=== PATIENT | female | born 1970 | race Caucasian/White ===

== ENCOUNTER 2020-01-25 11:09 | Outpatient (CLI) | payer OTHER, SELFPAY ==
--- NOTE | ~2020-01-25 | MMUS_ITS ---
EXAMINATION: MM diagnostic nathan BI w uri, US breast BI complete HISTORY: Six-month follow-up TECHNIQUE: ML, MLO and cc full field and spot 3-D tomosynthesis images of both breasts were performed and synthetic 2-D images were generated. CAD analysis was submitted and interpreted. High resolution bilateral complete breast ultrasound was performed. COMPARISON: 07/07/2019 bilateral digital screening mammogram 07/24/2019 bilateral diagnostic digital mammogram and bilateral Limited breast ultrasound BREAST PARENCHYMAL COMPOSITION: The breasts are heterogeneously dense, which may obscure small masses . FINDINGS: MAMMOGRAPHIC FINDINGS: No suspicious mass or architectural distortion, malignant desiccation, skin thickening or retraction of either breast is evident. No apparent significant new or developing density is noted. Bilateral co mplete breast ultrasound examination was performed to exclude any mass obscured by the heterogeneousl y dense stroma. ULTRASOUND: There are scattered bilateral breast cysts, the largest on the right situated at 3:00 in the periareo lar area measuring up to 1.1 x 0.6 x 0.7 cm, the largest on the left situated at 2:00 3 cm from the n ipple, measuring 1.2 x 0.4 x 1.0 cm. No suspicious mass or shadowing of either breast is evident. IMPRESSION: 1. No mammographic evidence of malignancy 2. Routine mammographic screening is recommended. BI-RADS Category 2: Benign finding(s). Reviewed, dictated and finalized at location A. IMPRESSION: 1. No mammographic evidence of malignancy 2. Routine mammographic screening is recommended. BI-RADS Category 2: Benign finding(s).
== END 2020-01-25 11:10 | disposition home or self-care (01) ==
LOC: ANHIMG 11:12
PROVIDERS: PCP Family Medicine; Visit Provider Obstetrics & Gynecology
DX: R92.8 Other abnormal and inconclusive findings on diagnostic imaging of breast (principal)
CPT/HCPCS: 76641; 77062; 77066; G0279

== ENCOUNTER 2020-08-19 15:26 | Outpatient (CLI) | payer OTHER, SELFPAY ==
--- NOTE | ~2020-08-19 | MM_ITS ---
EXAMINATION: MM screening nathan BI w uri HISTORY: Screening mammogram TECHNIQUE: Craniocaudal and mediolateral oblique 3-D tomosynthesis images were obtained and synthetic 2-D images were generated. CAD analysis was submitted and interpreted. COMPARISON: 01/25/2020 bilateral diagnostic mammogram and bilateral complete breast ultrasound 07/24/2019 bilateral diagnostic digital mammogram and Limited bilateral breast ultrasound 07/07/2019, 07/15/2018, 07/01/2017 bilateral digital screening mammogram examinations BREAST PARENCHYMAL COMPOSITION: The breasts are heterogeneously dense, which may obscure small masses . FINDINGS: There is an approximately 8 mm circumscribed low-density opacity at mid depth in the lower inner right breast. Diagnostic right mammogram and right breast ultrasound examination are recommende d. Otherwise there is no evidence of suspicious mass, calcification, or architectural distortion to sugg est malignancy in either breast. There has been no suspicious interval change. IMPRESSION: 1. 8mm circumscribed mass of lower inner quadrant of right breast 2. Diagnostic right mammogram and right breast ultrasound examination are recommended. BI-RADS Category 0: Incomplete: Needs additional imaging evaluation. Reviewed, dictated and finalized at location A. ER DEVELOPMENT MANAGER IMPRESSION: 1. 8mm circumscribed mass of lower inner quadrant of right breast 2. Diagnostic right mammogram and right breast ultrasound examination are recom mended. BI-RADS Category 0: Incomplete: Needs additional imaging evaluation.
== END 2020-08-19 15:27 | disposition home or self-care (01) ==
LOC: ANHIMG 15:29
PROVIDERS: PCP Family Medicine; Visit Provider Obstetrics & Gynecology
DX: Z12.31 Encounter for screening mammogram for malignant neoplasm of breast (principal); R92.8 Other abnormal and inconclusive findings on diagnostic imaging of breast
CPT/HCPCS: 77063; 77067

== ENCOUNTER 2020-08-26 12:29 | Outpatient (CLI) | payer OTHER, SELFPAY ==
--- NOTE | ~2020-08-26 | MMUS_ITS ---
EXAMINATION: MM diagnostic mammo unilat RT, US breast RT limited HISTORY: 8 mm circumscribed mass reported in the lower inner quadrant of right breast on 08/19/2020 s creening mammogram TECHNIQUE: Additional 3-D tomosynthesis images of the right breast were performed and synthetic 2-D i mages were generated. CAD analysis was submitted and interpreted. High resolution lower inner quadran t and lower outer quadrant right breast ultrasound was performed. COMPARISON: 08/19/2020 bilateral digital screening mammogram FINDINGS: MAMMOGRAPHIC FINDINGS: Approximately 8 mm rounded circumscribed opacity is noted in the lower inner quadrant of the right br east (craniocaudal Tomosynthesis image 25/68). ULTRASOUND: 4:00: Adjacent 4 mm and 8 mm sonolucency without internal vascularity, with through transmission and posterior enhancement, compatible with cyst. IMPRESSION: 1. 4 mm at 8 mm cyst at 4:00 2. No mammographic evidence of malignancy 3. Routine annual mammographic screening follow-up is recommended. BI-RADS Category 2: Benign finding(s). Reviewed, dictated and finalized at location A. R MIXER HELPER IMPRESSION: 1. 4 mm at 8 mm cyst at 4:00 2. No mammographic evidence of malignancy 3. Routine annual mammographic screening follow-up is recommended. BI-RADS Category 2: Benign finding(s).
== END 2020-08-26 12:30 | disposition home or self-care (01) ==
LOC: ANHIMG 12:31
PROVIDERS: PCP Family Medicine; Visit Provider Obstetrics & Gynecology
DX: R92.8 Other abnormal and inconclusive findings on diagnostic imaging of breast (principal)
CPT/HCPCS: 76642; 77065

== ENCOUNTER 2021-02-13 03:16 | Emergency (ER) | payer OTHER, SELFPAY ==
--- NOTE | ~2021-02-13 | CT_ITS ---
EXAMINATION: CT abdomen pelvis wo con DATE: 02/13/2021 04:12 INDICATION: Right leg pain. TECHNIQUE: Computed tomography (CT) of the abdomen and pelvis was performed without intravenous contr ast. Automated exposure control and iterative reconstruction technique were employed. The dose-length product was 681.67 mGy-cm. COMPARISON: None. FINDINGS: The visualized portions of the lung bases demonstrate mild atelectasis. No pleural effusion . The heart size is normal. No pericardial effusion. The liver, gallbladder, spleen, pancreas, adrena l glands, and right kidney are normal. There is a 2 mm stone in left kidney. There are phleboliths in the appendix, which measures 9 mm in diameter. There are no pathologically enlarged lymph nodes. The re is no free intraperitoneal fluid. There is mild lumbar spondylosis. IMPRESSION: 1. 2 mm nonobstructing left kidney stone. 2. Appendicoliths in the appendix with appendiceal diameter of 9 mm, but no fat stranding or leukocyt osis to suggest appendicitis. Reviewed, dictated and finalized at location A. IMPRESSION: 1. 2 mm nonobstructing left kidney stone. 2. Appendicoliths in the appendix with appendiceal diameter of 9 mm, but no fat stranding or leukocytosis to suggest appendicitis.
[2021-02-13 03:21] VITALS: BP 146/81; PULSE 78; RESP 18; TEMP 36.6; O2SAT 100
--- NOTE | 2021-02-13 03:38 | ED.ABDPAIN ---
HPI - Abdominal Pain General Chief Complaint: Abdominal Pain Stated Complaint: right side pain/abd pain Time Seen by Provider: 02/13/21 03:35 Source: patient Mode of arrival: ambulatory Limitations: no limitations History of Present Illness HPI narrative: Patient is a 50-year-old female complaining of right flank pain, 8 out of 10, tightness, nonradiating started tonight. Patient denies any chest pain, shortness of breath, nausea, vomiting, diarrhea, fever, chills or urinary symptoms. Patient states that she has a history of kidney stones. Related Data Home Medications Medication Instructions Recorded Confirmed No Home Medications 07/25/20 10/25/20 Allergies Allergy/AdvReac Type Severity Reaction Status Date / Time Penicillins Allergy Unknown rash Verified 10/25/20 15:20 Sulfa (Sulfonamide Allergy Unknown hives Verified 10/25/20 15:20 Antibiotics) Review of Systems Review of Systems: All systems reviewed & are unremarkable except as noted in HPI and below Constitutional: Constitutional: Denies body ache(s), Denies chills, Denies excessive sweating, Denies fatigue, Denies fever(s), Denies headache(s), Denies lethargy, Denies malaise, Denies weakness and Denies weight loss Eyes: Eyes: Denies blurry vision, Denies change in vision and Denies loss of vision ENT: Denies dizziness, Denies ear discharge, Denies headache(s), Denies lip swelling, Denies epistaxis, Denies nasal congestion, Denies neck pain, Denies throat swelling and Denies tongue swelling Cardiovascular: Cardiovascular: Denies chest pain, Denies chest pain at rest, Denies chest pain with activity, Denies diaphoresis, Denies rapid heart rate, Denies edema, Denies irregular heart rhythm, Denies lightheadedness, Denies palpitations, Denies dyspnea and Denies dyspnea on exertion Respiratory: Respiratory: Denies chest congestion, Denies cough, Denies hemoptysis, Denies dyspnea and Denies dyspnea on exertion Gastrointestinal: Gastrointestinal: Denies melena, Denies hematochezia, Denies diarrhea, Denies nausea, Denies vomiting and Denies hematemesis Musculoskeletal: Musculoskeletal: Denies abnormal gait, Denies deformity, Denies joint swelling, Denies limited range of motion, Denies neck pain and Denies numbness Neurologic: Denies Abnormal speech present, Denies abnormal gait, Denies confusion, Denies dizziness, Denies headache(s), Denies focal weakness, Denies loss of vision, Denies numbness, Denies Other visual disturbances, Denies Sensory deficit (Neuro) and Denies weakness Psychiatric: Psychiatric: Denies confusion, Denies depression, Denies auditory hallucinations, Denies homicidal ideation and Denies suicidal ideation Endocrine: Endocrine: Denies cold intolerance, Denies excessive sweating, Denies fatigue, Denies heat intolerance and Denies palpitations Hematologic/Lymphatic: Hematologic/Lymphatic: Denies easy bleeding and Denies easy bruising Allergic/Immunologic: Allergic/Immunologic: Denies lip swelling, Denies throat swelling and Denies tongue swelling PMFSH Past Medical History Medical History (Updated 02/13/21 @ 05:21 by Milton Rojas MD) Kidney stones Leg length discrepancy Overweight (BMI 25.0-29.9) Unspecified vitamin D deficiency Vaginal delivery x4 Surgical History Surgical History H/O LEEP Family History Family History Grandparent Cerebrovascular accident Family history of malignant neoplasm of breast Social History Social History Smoking status: Never smoker Alcohol intake: current Exam Const: General: cooperative, healthy appearing, comfortable, no acute distress, well developed, alert and awake; No confusion Orientation/consciousness: oriented to person, oriented to place, oriented to time, patient oriented x3 and No confusion Limitations: no limit
[2021-02-13 03:53] LABS: Alanine Aminotransferase 26 U/L (4-35); Albumin Level 4.7 g/dL (3.5-5.1); Alkaline Phosphatase 68 U/L (38-126); Anion Gap 7 mmol/L (8-16); Aspartate Amino Transferase 34 U/L (14-36); Bilirubin,Total 0.4 mg/dL (0.2-1.3); Blood Urea Nitrogen 11 mg/dL (7-17); Calcium 10.1 mg/dL (8.4-10.2); Carbon Dioxide 28 mmol/L (22-30); Chloride 102 mmol/L (98-107); Estimated CRCL calculation 95 ml/min; Estimated Glomerular Filt Rate > 60; Glucose 112 mg/dL (65-105); Lipase 165 U/L (23-300); Potassium 3.6 mmol/L (3.4-5.0); Sodium 137 mmol/L (137-145)
[2021-02-13 03:55] LABS: Basophils Absolute Auto 0.1 K/mm3 (0.0-0.1); Basophils Percent Auto 0.8 % (0.2-1.2); Eosinophils Absolute Auto 0.2 K/mm3 (0-0.3); Hematocrit 38.9 % (37.0-47.0); Hemoglobin 12.7 g/dL (12.0-15.0); Immature Granulocyte Absolute 0.02 K/mm3 (0.00-0.031); Immature Granulocyte Percent A 0.2 % (0-0.5); Lymphocytes Absolute Auto 1.93 K/mm3 (0.9-3.2); Lymphocytes Percent Auto 21.1 % (18.3-44.2); Mean Corpuscular HGB Conc 32.6 g/dl (32-36); Mean Corpuscular Hemoglobin 26.7 pg (26-34); Mean Corpuscular Volume 81.7 fl (80-100); Mean Platelet Volume 11.1 fl (7.4-10.4); Monocytes Absolute Auto 0.6 K/mm3 (0.1-0.6); Monocytes Percent Auto 6.1 % (2.6-8.5); Neutrophils Absolute Auto 6.4 K/mm3 (1.3-6.7); Neutrophils Percent Auto 69.8 % (45.5-73.1); Platelet Count Result 241 k/mm3 (150-375); Red Blood Count 4.76 M/mm3 (4.2-5.4); Red Cell Distribution Width 14.1 % (11.5-14.5); White Blood Count 9.2 K/mm3 (4.5-10.0)
[2021-02-13] MEDS: SODIUM CHLORIDE 0.9% IV 1,000 ML 999 ML IV CONT (04:55)
[2021-02-13] MEDS: KETOROLAC 30 MG/ML VIAL (*BKC) IV PUSH (04:55)
[2021-02-13 05:07] LABS: Add Urine Microscopic? YES; Appearance Urine Clear (Clear); Bacteria Urine Trace /hpf; Bilirubin Urine Negative (Negative); Blood Urine 2+ (Negative); Color Urine Yellow (Yellow); Glucose Urine UA Negative (Negative); Ketones Urine 1+ mg/dL (Negative); Leukocyte Esterase Ur Negative LEU/UL (Negative); Mucus Urine Few /lpf; Nitrate Urine Negative (Negative); Protein Urine 1+ mg/dL (Negative); Specific Grav Ur 1.021 (1.001-1.035); Squamous Epithelial Cell Urine Few /hpf (Few); Urobilinogen Urine Negative mg/dL (<2.0); WBC Urine 0-3 /hpf
[2021-02-13 05:45] VITALS: BP 116/78; PULSE 69; RESP 16; O2SAT 98
== END 2021-02-13 05:45 | disposition home or self-care (01) ==
PROVIDERS: Emergency Provider Emergency Medicine; PCP Family Medicine
DX: R10.9 Unspecified abdominal pain (principal); R31.29 Other microscopic hematuria; Z87.442 Personal history of urinary calculi; E66.3 Overweight; Z68.28 Body mass index [BMI] 28.0-28.9, adult; E55.9 Vitamin D deficiency, unspecified
CPT/HCPCS: 36415; 74176; 80053; 81001; 81025; 83690; 85025; 96361; 96374; 99284; J1885; J7030

== ENCOUNTER 2021-05-15 04:08 | Day surgery (SDC) | payer BC, SELFPAY ==
[2021-05-07 15:12] VITALS: BMI 25.0
[2021-05-15 06:51] VITALS: BMI 27.0
--- NOTE | 2021-05-15 06:55 | PM.HPGS ---
History of Present Illness History of Present Illness Consent: Risks, benefits, and alternatives have been discussed and questions answered. Patient agrees to proceed with procedure. Chief complaint: neoplasm screening Narrative: Fay Anderson is a 51 year old female referred for screening colonoscopy Review of Systems Review of Systems: All systems reviewed & are unremarkable except as noted in HPI and below PMFSH Past Medical History Medical History Kidney stones Leg length discrepancy Overweight (BMI 25.0-29.9) Unspecified vitamin D deficiency Vaginal delivery x4 Surgical History Surgical History H/O LEEP Family History Family History Grandparent Cerebrovascular accident Family history of malignant neoplasm of breast Social History Social History Smoking status: Never smoker Alcohol intake: current Drinks per week: 1 Substance use: never Living arrangements: with family Spiritual care concerns: No Meds Home Medications and Allergies Home Medications Medication Instructions Recorded Confirmed Type lactobacillus combination no.8 3 cell PO HS 05/07/21 05/15/21 History [Adult Probiotic] Allergies Allergy/AdvReac Type Severity Reaction Status Date / Time Penicillins Allergy Unknown rash Verified 05/15/21 06:50 Sulfa (Sulfonamide Allergy Unknown hives Verified 05/15/21 06:50 Antibiotics) Exam Resp: Auscultation: clear to auscultation bilaterally Cardio: Rate: regular rate Rhythm: regular rhythm GI: GI Palp: Yes Soft to palpation and No Tenderness to palpation present (GI) Assessment and Plan Assessment and plan (1) Colon cancer screening: Code(s): Z12.11 - Encounter for screening for malignant neoplasm of colon Status: Acute Assessment and Plan: Colonoscopy with possible biopsy or polypectomy or cautery or injection of substances.
[2021-05-15] MEDS: LACTATED RINGERS 1,000 ML 150 ML IV CONT (06:59)
[2021-05-15 07:00] VITALS: BP 127/65; PULSE 93; RESP 18; TEMP 36.2; O2SAT 98
--- NOTE | 2021-05-15 07:38 | WPDANESEPPF ---
Anes - Initial Pre Proc Eval Procedure: Operation Date: 05/15/21 08:00 Proposed Procedures p Screening Colonoscopy - Rian Anderson MD Date/Time: 05/15/21 07:38 Surgeon: Rian Anderson MD Pre Op Diagnosis: neoplasm screening Patient Data Age: 51 Gender: F Height: 1.75 m Weight: 83 kg Last Vital Signs Temp 97.1 F L 05/15/21 07:00 Pulse 93 05/15/21 07:00 Resp 18 05/15/21 07:00 BP 127/65 05/15/21 07:00 Pulse Ox 98 05/15/21 07:00 Allergies Allergy/AdvReac Type Severity Reaction Status Date / Time Penicillins Allergy Unknown rash Verified 05/15/21 06:50 Sulfa (Sulfonamide Allergy Unknown hives Verified 05/15/21 06:50 Antibiotics) Home Medications Medication Instructions Recorded Confirmed Type lactobacillus combination no.8 3 cell PO HS 05/07/21 05/15/21 History [Adult Probiotic] Patient hx anesthesia problems: none Family hx anesthesia problems: none PMFSH Past Medical History Medical History Kidney stones Leg length discrepancy Overweight (BMI 25.0-29.9) Unspecified vitamin D deficiency Vaginal delivery x4 Surgical History Surgical History H/O LEEP Family History Family History Grandparent Cerebrovascular accident Family history of malignant neoplasm of breast Social History Social History Smoking status: Never smoker Alcohol intake: current Drinks per week: 1 Substance use: never Living arrangements: with family Spiritual care concerns: No Anes - Eval Final PreProcedure Day of Procedure 05/15/21 07:38 Patient weight: overweight Heart: regular rate and rhythm Lungs: clear to auscultation Airway: Mallampati scale class II Neurological: alert and oriented Last oral intake: >/= 8 hours ASA classification: II Emergent: no Anesthetic plan: proceed Anesthesia type and monitoring: general GIVS and standard monitoring Informed Consent: The patient's anesthetic plan and its attendant risks and benefits were discussed with the patient/family/POA. Questions were solicited and answers provided to the satisfaction of the patient/family/POA.
[2021-05-15 08:12] VITALS: BP 157/73; PULSE 73; RESP 18; O2SAT 100
[2021-05-15 08:22] VITALS: BP 116/81; PULSE 74; RESP 24; O2SAT 100
[2021-05-15 08:32] VITALS: BP 126/89; PULSE 76; RESP 16; O2SAT 99
== END 2021-05-15 08:41 | disposition home or self-care (01) ==
PROVIDERS: PCP Family Medicine; Visit Provider Internal Medicine Gastroenterology
PROC: 0DJD8ZZ Inspection of Lower Intestinal Tract, Via Natural or Artificial Opening Endoscopic (ICD-10-PCS; CPT 45378; principal; 2021-05-15 08:00)
DX: Z12.11 Encounter for screening for malignant neoplasm of colon (principal); K57.30 Diverticulosis of large intestine without perforation or abscess without bleeding
CPT/HCPCS: 45378; J2370; J7120

== ENCOUNTER 2021-08-20 07:51 | Outpatient (CLI) | payer BC, SELFPAY ==
--- NOTE | ~2021-08-20 | US_ITS ---
EXAMINATION: US pelvic complete w TV DATE: 08/20/2021 09:36 INDICATION: Hypertrophy of uterus TECHNIQUE: Multiple transabdominal and endovaginal sonographic images of the pelvis were obtained. COMPARISON: None. FINDINGS: The uterus measures 9.5 x 5.4 x 4.7 cm. The endometrial complex measures 6 mm in thickness. Again se en are couple 5-6 mm anechoic nabothian cysts at the cervix. The cervix however appears relatively th ickened when compared with the prior study with increased central region of heterogeneous echogenicit y with scattered shadowing. The right ovary measures 2.3 x 1.6 x 1.3 cm. 1.3 cm anechoic right ovaria n cyst. The left ovary measures 2.7 x 1.3 x 1.4 cm. Vascular flow identified in both ovaries on color Doppler. There is no free fluid in the pelvis. IMPRESSION: 1. Thickened cervix with heterogeneous central echogenicity which raises concern for cervical cancer. Differential would include clot within the endocervical canal, cervicitis or pedunculated fibroid or endometrial polyp. Recommend correlation with pelvic exam with cervical visualization and Pap smear. Reviewed, dictated and finalized at location A. PPING MACHINE OPERATOR IMPRESSION: 1. Thickened cervix with heterogeneous central echogenicity which raises concer n for cervical cancer. Differential would include clot within the endocervical canal, cervicitis or pedunculated fibroid or endometrial polyp. Recommend corre lation with pelvic exam with cervical visualization and Pap smear.
--- NOTE | ~2021-08-20 | MM_ITS ---
EXAMINATION: MM screening nathan BI w uri HISTORY: Screening mammogram TECHNIQUE: Craniocaudal and mediolateral oblique 3-D tomosynthesis images were obtained and synthetic 2-D images were generated. CAD analysis was submitted and interpreted. COMPARISON: 08/26/2020, 08/19/2020, 01/25/2020, 07/16/2019, 07/07/2019 BREAST PARENCHYMAL COMPOSITION: The breasts are heterogeneously dense, which may obscure small masses . FINDINGS: There is no evidence of suspicious mass, calcification, or architectural distortion to sugg est malignancy in either breast. There has been no suspicious interval change. IMPRESSION: 1. No mammographic evidence of malignancy. 2. Recommend routine screening mammography in one year. BI-RADS Category 1: Negative Reviewed, dictated and finalized at location A. T THINNER
== END 2021-08-20 07:52 | disposition home or self-care (01) ==
PROVIDERS: PCP Family Medicine; Visit Provider Obstetrics & Gynecology
DX: Z12.31 Encounter for screening mammogram for malignant neoplasm of breast (principal); N85.2 Hypertrophy of uterus
CPT/HCPCS: 76830; 76856; 77063; 77067

== ENCOUNTER 2022-04-28 12:14 | Outpatient (CLI) | payer BC, SELFPAY | END 2022-04-28 12:15 | disposition home or self-care (01) | LOC: CHSLAB 12:19 | PROVIDERS: PCP Family Medicine; Visit Provider Specialist | DX: D22.72 Melanocytic nevi of left lower limb, including hip (principal) | CPT/HCPCS: 88305; 88342 ==

== ENCOUNTER 2022-10-08 17:20 | Outpatient (CLI) | payer BC, SELFPAY ==
--- NOTE | ~2022-10-08 | MM_ITS ---
EXAMINATION: MM screening nathan BI w uri HISTORY: Screening TECHNIQUE: Craniocaudal and mediolateral oblique 3-D tomosynthesis images were obtained and synthetic 2-D images were generated. CAD analysis was submitted and interpreted. COMPARISON: Comparison to multiple prior studies sequentially, with oldest reviewed study dated 06/27. BREAST PARENCHYMAL COMPOSITION: The breasts are heterogeneously dense, which may obscure small masses FINDINGS: Right breast is stable without evidence for new mass, calcification or suspicious sap fico architect ural distortion. There are new masses in the lower central aspect of the left breast which are obscur ed by overlying fibroglandular content. IMPRESSION: 1. New left breast masses. 2. Additional mammographic views and possible breast ultrasound are recommended. BI-RADS Category 0: Incomplete: Needs additional imaging evaluation. Reviewed, dictated and finalized at location A. BREWER IMPRESSION: 1. New left breast masses. 2. Additional mammographic views and possible breast ultrasound are recommended . BI-RADS Category 0: Incomplete: Needs additional imaging evaluation.
== END 2022-10-08 17:21 | disposition home or self-care (01) ==
PROVIDERS: PCP Family Medicine; Visit Provider Obstetrics & Gynecology
DX: Z12.31 Encounter for screening mammogram for malignant neoplasm of breast (principal); N63.20 Unspecified lump in the left breast, unspecified quadrant
CPT/HCPCS: 77063; 77067

== ENCOUNTER 2022-10-26 11:41 | Outpatient (CLI) | payer BC, SELFPAY ==
--- NOTE | ~2022-10-26 | MMUS_ITS ---
EXAMINATION: MM diagnostic nathan LT w uri, US breast LT complete HISTORY: Follow-up left breast asymmetry TECHNIQUE: Additional 3-D tomosynthesis images of the left breast were performed and synthetic 2-D im ages were generated. CAD analysis was submitted and interpreted. High resolution complete left breast ultrasound was performed. COMPARISON: 10/08/2022 BREAST PARENCHYMAL COMPOSITION: The breasts are heterogeneously dense, which may obscure small masses FINDINGS: MAMMOGRAPHIC FINDINGS: There are no discrete masses, calcifications or architectural distortion in the left breast. ULTRASOUND: Complete left breast ultrasound including all 4 quadrants in the subareolar location: At 2:00, 3 cm f rom the nipple, there is a slightly irregular shaped hypoechoic mass measuring 7 x 4 x 3 mm. There is parallel orientation, no posterior features and no internal vascularity. IMPRESSION: 1. Slightly irregular shape 7 mm left breast mass at 2:00, 3 cm from the nipple. 2. Ultrasound-guided left breast biopsy recommended. BI-RADS category 4, suspicious findings. Reviewed, dictated and finalized at location A. ER TENDER IMPRESSION: 1. Slightly irregular shape 7 mm left breast mass at 2:00, 3 cm from the nipple . 2. Ultrasound-guided left breast biopsy recommended. BI-RADS category 4, suspicious findings.
== END 2022-10-26 11:42 | disposition home or self-care (01) ==
LOC: ANHIMG 11:43
PROVIDERS: PCP Family Medicine; Visit Provider Obstetrics & Gynecology
DX: R92.8 Other abnormal and inconclusive findings on diagnostic imaging of breast (principal)
CPT/HCPCS: 76641; 77061; 77065; G0279

== ENCOUNTER → 2022-11-12 10:07 | Outpatient (CLI) | payer BC, SELFPAY ==
--- NOTE | ~2022-11-12 | US_ITS ---
EXAMINATION: US abdomen limited DATE: 11/12/2022 10:24 INDICATION: Right upper quadrant pain TECHNIQUE: Multiple grayscale and Doppler ultrasound images of the abdomen were obtained. COMPARISON: None available FINDINGS: Bowel gas obscures visualization of the pancreas. The visualized portions of the pancreas a re unremarkable. The liver is normal with normal echogenicity and echotexture. No surface nodularity. Normal hepatopetal flow in the main portal vein. The gallbladder is normal with no abnormal wall thi ckening, pericholecystic fluid or stones. The normal common bile duct measures 4 mm. There was no son ographic Cedeno sign. IMPRESSION: 1. Normal sonographic study of the gallbladder. Reviewed, dictated and finalized at location A. DESIGN INTERN
== END ==
PROVIDERS: PCP Family Medicine; Visit Provider Physician Assistant
DX: R10.11 Right upper quadrant pain (principal)
CPT/HCPCS: 76705

== ENCOUNTER → 2022-11-24 10:13 | Outpatient (CLI) | payer BC, SELFPAY ==
--- NOTE | ~2022-11-24 | CT_ITS ---
CT of the Abdomen and Pelvis: Indication: Hematuria Technique: 2.5 mm axial scans were obtained through the abdomen and pelvis prior to and following in travenous administration of 130 cc of Omnipaque 350. Dose reduction technique was used on this scan b y utilizing automated exposure control and iterative reconstruction technique. The dose-length produc t (DLP) was 1987.72 mGy-cm. COMPARISON: 02/13/2021 Findings: Scans through the lung bases are unremarkable. The liver, spleen, pancreas, gallbladder, adrenals and right kidney are within normal limits. Punctat e nonobstructing left renal stone noted. Ureters are completely opacified on postcontrast images, and appear unremarkable. No evidence of aortic aneurysm. No lymphadenopathy. No bowel obstruction or bowel wall thickening. There is no evidence to suggest acute appendicitis. Images through the pelvis were performed. Urinary bladder unremarkable. No adnexal mass evident. No a scites. Impression: Punctate nonobstructing left renal stone. No other significant findings. Reviewed, dictated and finalized at [facility]. DELIVERER Impression: Punctate nonobstructing left renal stone. No other significant findings.
== END ==
PROVIDERS: PCP Family Medicine; Visit Provider Physician Assistant
DX: R10.9 Unspecified abdominal pain (principal); R31.29 Other microscopic hematuria; N20.0 Calculus of kidney
CPT/HCPCS: 74178; Q9967

== ENCOUNTER 2024-05-25 07:51 | Outpatient (CLI) | payer OTHER, SELFPAY ==
--- NOTE | ~2024-05-25 | NM_ITS ---
EXAMINATION: NM stress w perf spect multi DATE: 05/25/2024 10:23 INDICATION: Chest pain TECHNIQUE: Rest images were obtained following intravenous administration of 11 mCi Tc99m tetrofosmin (Myoview). The patient performed an exercise activity. At peak exercise, 34 mCi Tc99m tetrofosmin (M yoview) was administered intravenously, and stress images were obtained. Data was reconstructed into short axis and horizontal and vertical long axis SPECT images. Gated SPECT images were also obtained. COMPARISON: None. FINDINGS: There is normal left ventricular perfusion without definite evidence of reversible or fixed perfusion abnormality to suggest ischemia or infarction. There is normal left ventricular chamber size, wall motion and ejection fraction. Left ventricular ejection fraction measures >70%. IMPRESSION: 1. Normal myocardial perfusion at rest and during stress. 2. Left ventricular ejection fraction measuring >70%. Reviewed, dictated and finalized at location A.
--- NOTE | 2024-05-25 08:38 | EST_ITS ---
Patient Info Name: Fay Anderson Age: 54 years : 1970 Gender: Female Exam Date: 05/25/2024 9:26 AM Exam Location: Echo Lab Patient Status: Outpatient Admit Date: 05/25/2024 Staff Ordering Physician: Shweta German Attending Provider: Shweta German Exercise Technologist: Dee Dee Mejia CT Exercise Physician: Bryan Calix DO Exam Type: CA stress test treadmill w NM Study Info Indications R07.9 - Chest pain, unspecified A pharmacological stress test was performed. Summary 1. 1. Negative Benedict exercise stress test for ischemic ST changes by ECG criteria. 2. 2. Good functional capacity, achieving 10 METs of workload. 3. 3. Appropriate HR response to exercise. 4. 4. Appropriate HR recovery at 1 minute post exercise. 5. 5. Nuclear scan to follow and will be reported separately. Please correlate with it. 6. 6. Patient informed of the above results. Protocol: Benedict Stress ECG Details Stage: REST Duration (min): 1 min : 23 sec Speed (mph): 0.0 Grade (%): 0 HR (bpm): 71 SBP (mmHg): 125 DBP (mmHg): 83 METS: --- Stage: REST Duration (min): 7 min : 21 sec Speed (mph): 0.0 Grade (%): 0 HR (bpm): 94 SBP (mmHg): 125 DBP (mmHg): 83 METS: --- Stage: STAGE 1 Duration (min): 1 min : 0 sec Speed (mph): 1.7 Grade (%): 10 HR (bpm): 101 SBP (mmHg): 125 DBP (mmHg): 83 METS: --- Stage: STAGE 1 Duration (min): 2 min : 0 sec Speed (mph): 1.7 Grade (%): 10 HR (bpm): 111 SBP (mmHg): 125 DBP (mmHg): 83 METS: --- Stage: STAGE 1 Duration (min): 3 min : 0 sec Speed (mph): 1.7 Grade (%): 10 HR (bpm): 112 SBP (mmHg): 161 DBP (mmHg): 82 METS: --- Stage: STAGE 2 Duration (min): 1 min : 0 sec Speed (mph): 2.5 Grade (%): 12 HR (bpm): 118 SBP (mmHg): 161 DBP (mmHg): 82 METS: --- Stage: STAGE 2 Duration (min): 2 min : 0 sec Speed (mph): 2.5 Grade (%): 12 HR (bpm): 124 SBP (mmHg): 164 DBP (mmHg): 85 METS: --- Stage: STAGE 2 Duration (min): 3 min : 0 sec Speed (mph): 2.5 Grade (%): 12 HR (bpm): 127 SBP (mmHg): 164 DBP (mmHg): 85 METS: --- Stage: STAGE 3 Duration (min): 1 min : 0 sec Speed (mph): 3.4 Grade (%): 14 HR (bpm): 143 SBP (mmHg): 167 DBP (mmHg): 85 METS: --- Stage: STAGE 3 Duration (min): 2 min : 0 sec Speed (mph): 3.4 Grade (%): 14 HR (bpm): 151 SBP (mmHg): 167 DBP (mmHg): 85 METS: --- Stage: STAGE 3 Duration (min): 2 min : 0 sec Speed (mph): 3.4 Grade (%): 14 HR (bpm): 151 SBP (mmHg): 167 DBP (mmHg): 85 METS: --- Stage: RECOVERY Duration (min): 0 min : 59 sec Speed (mph): 0.0 Grade (%): 0 HR (bpm): 127 SBP (mmHg): 168 DBP (mmHg): 86 METS: --- Stage: RECOVERY Duration (min): 1 min : 59 sec Speed (mph): 0.0 Grade (%): 0 HR (bpm): 102 SBP (mmHg): 168 DBP (mmHg): 86 METS: --- Stage:
== END 2024-05-25 07:52 | disposition home or self-care (01) ==
PROVIDERS: PCP Family Medicine; Visit Provider Nurse Practitioner Family
DX: R07.9 Chest pain, unspecified (principal)
CPT/HCPCS: 78452; 93017; A9502

== ENCOUNTER 2024-07-14 12:58 | Outpatient (CLI) | payer OTHER, SELFPAY ==
--- NOTE | ~2024-07-14 | US_ITS ---
US thyroid INDICATION: Follow-up thyroid nodules. Thyroid goiter. TECHNIQUE: Real-time sonographic images of the thyroid gland were obtained. COMPARISON: Ultrasound dated 09/06/2009 FINDINGS: The right thyroid lobe measures 5.7 x 1.6 x 2 cm. The left thyroid lobe measures 5 x 1.3 x 2 cm. There is heterogeneous echotexture and echogenicity throughout the thyroid gland. There are mu ltiple right thyroid nodules some solid and some cystic, largest measuring solid measuring 8 x 10 x 7 mm. 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 Left thyroid gland is diffusely homogeneous without discrete mass. IMPRESSION: 1. Right thyroid nodules, largest measuring 1 cm, TR 4, likely benign. Consider follow-up ultrasound in 12 months. Reviewed, dictated and finalized at location B. IMPRESSION: 1. Right thyroid nodules, largest measuring 1 cm, TR 4, likely benign. Conside r follow-up ultrasound in 12 months.
== END 2024-07-14 12:59 | disposition home or self-care (01) ==
PROVIDERS: PCP Family Medicine; Visit Provider Family Medicine
DX: E04.2 Nontoxic multinodular goiter (principal)
CPT/HCPCS: 76536

== ENCOUNTER 2025-07-24 10:18 | Outpatient (CLI) | payer OTHER, SELFPAY ==
--- NOTE | ~2025-07-24 | US_ITS ---
Clinical history:Nontoxic multinodular goiter EXAM:Ultrasound thyroid TECHNIQUE:Multiple static grayscale images and color Doppler images were obtained of the thyroid gland. Comparisons:07/14/2024 FINDINGS: Right thyroid lobe is enlarged and heterogeneous and measures 5.7 x 2.0 x 1.5 cm. Prominent vascular flow. Left thyroid lobe is enlarged and heterogeneous and measures 4.7 x 1.7 x 1.4 cm. Prominent vascular flow Isthmus is heterogeneous and measures 0.4 cm. Prominent vascular flow There are right thyroid nodules, the largest measures 1.0 x 0.7 x 0.9 cm and is solid and hypoechoic with a few tiny echogenic foci possibly calcifications. TR 5. The finding measured 1.0 x 0.8 x 0.7 cm on 07/14/2024. IMPRESSION: 1.There are right thyroid nodules, the largest measures 1.0 x 0.7 x 0.9 cm and is solid and hypoechoic with a few tiny echogenic foci possibly calcifications. TR 5. The finding measured 1.0 x 0.8 x 0.7 cm on 07/14/2024. A fine-needle aspiration is recommended of the largest nodule in the right thyroid lobe. 2. Thyroid gland is enlarged and heterogeneous with prominent vascular flow. Consider thyroiditis. Reviewed, dictated and finalized at location Q. IMPRESSION: 1.There are right thyroid nodules, the largest measures 1.0 x 0.7 x 0.9 cm and is solid and hypoechoic with a few tiny echogenic foci possibly calcifications. TR 5. The finding measured 1.0 x 0.8 x 0.7 cm on 07/14/2024. A fine-needle asp iration is recommended of the largest nodule in the right thyroid lobe. 2. Thyroid gland is enlarged and heterogeneous with prominent vascular flow. Co nsider thyroiditis.
== END 2025-07-24 10:19 | disposition home or self-care (01) ==
LOC: GOSHIMG 10:18
PROVIDERS: PCP Family Medicine; Visit Provider Family Medicine
DX: E04.2 Nontoxic multinodular goiter (principal)
CPT/HCPCS: 76536

== ENCOUNTER 2025-08-14 09:55 | Outpatient (CLI) | payer OTHER, SELFPAY ==
--- NOTE | ~2025-08-14 | US_ITS ---
EXAMINATION: US pelvic complete w TV, 08/14/2025 9:58 FLOWER GROWER HISTORY: R10.31 - Right lower quadrant pain Comparison: None Technique: Fitch-scale and color Doppler images were obtained. Findings: Uterus: Uterus anteverted 9 x 4.4 x 5.4 cm. Anterior fundal fibroid 1.5 x 1.7 cm. . Endometrium 3 mm. Right Ovary:Right ovary 2.7 x 1.5 x 2.2 cm, no adnexal mass, normal flow. Left Ovary: Left ovary not identified. Free Fluid: Small amount of free fluid. Impression: Uterine fibroid. No etiology to explain the patient's pain Reviewed, dictated and finalized at location P. ER GROWER Impression: Uterine fibroid. No etiology to explain the patient's pain
== END 2025-08-14 09:56 | disposition home or self-care (01) ==
LOC: MICIMG 09:56
PROVIDERS: PCP Family Medicine; Visit Provider Nurse Practitioner Obstetrics & Gynecology
DX: R10.31 Right lower quadrant pain (principal); D25.9 Leiomyoma of uterus, unspecified
CPT/HCPCS: 76830; 76856

== ENCOUNTER 2025-08-16 10:18 | Outpatient (CLI) | payer OTHER, SELFPAY ==
--- NOTE | ~2025-08-16 | US_ITS ---
EXAMINATION: US FNA w image guidance DATE: 08/16/2025 11:25 INDICATION: TECHNIQUE: A time-out was performed to verify the patient's name, date of , and procedure to be performed. The procedure and its benefits and risks were discussed with the patient. Risks specifically discussed included bleeding and infection. The patient understood the risks and agreed to proceed. The neck was prepped and draped in the usual sterile manner. 5 mL 1% lidocaine was used for local anesthesia. 6 passes were made with a 25G needle into the lesion. Appropriate needle location was documented with continuous sonographic guidance. A sterile bandage was applied. There were no immediate complications. FINDINGS: Grayscale ultrasound images demonstrate biopsy needles advanced into a 0.9 cm TI RADS 5 solid hypoechoic nodule with lobular margins and internal echogenic foci. IMPRESSION: 1. Successful ultrasound-guided fine needle aspiration of a 0.9 cm TI RADS 5 right thyroid nodule. Reviewed, dictated and finalized at location A. MOLDER HELPER IMPRESSION: 1. Successful ultrasound-guided fine needle aspiration of a 0.9 cm TI RADS 5 r ight thyroid nodule.
--- NOTE | 2025-08-16 11:19 | CY_PTH ---
PATIENT: Fay Anderson LOC: ANHIMG #:[id number] AGE/SX: 55/F ROOM: RE08/16/[address]: Shweta German APRN : 1970 BED: DIS: 08/16/2025 SPEC #: [id number] RECD: 08/16/25 11:20 STATUS: [facility] REQ #: [id number] SUKUMAR: 08/16/25 11:[address]: Shweta German DEPT: [facility] Cytology RECD BY: Guillermina Boo MLT, ([facility]) ENTERED: 08/16/25 11:20 SP TYPE: Cytology OTHR DR: Jorden Paniagua MD Tissues: A - FNA Thyroid Procedures: Hematoxylin and Eosin Stain Cell Block Fine Needle Aspiration Evaluation Fine Needle Aspiration Pathologist
== END 2025-08-16 10:19 | disposition home or self-care (01) ==
PROVIDERS: PCP Family Medicine; Visit Provider Nurse Practitioner Family
DX: E04.2 Nontoxic multinodular goiter (principal)
CPT/HCPCS: 10005; 88172; 88173; 88305